=== PATIENT | male | born 1970 | race Caucasian/White ===

== ENCOUNTER → 2020-07-26 | Outpatient (CLI) | payer BC | LOC: OD 13:18 | PROVIDERS: ATTEND Nurse Practitioner Family | DX: M54.2 Cervicalgia (principal); H92.01 Otalgia, right ear | CPT/HCPCS: 36415; 85652; 86140 ==

== ENCOUNTER 2020-08-03 10:09 | Emergency (ER) | payer BC ==
[2020-08-03] MEDS ORDERED: NORMAL SALINE 1000 ML 1,000 ML IV ONE (10:36)
--- NOTE | 2020-08-03 10:36 | ER Document Report ---
ED Medical Screen (RME) - General Chief Complaint: Chest Pain Stated Complaint: CHEST PAIN/NECK PAIN Time Seen by Provider: 08/03/20 10:13 Primary Care Provider: DOUGIE ROGERS NP [Primary Care Provider] - Follow up as needed - [facility] Notes: 08/03/20 10:15 50 yr old male with history of hyperlipidemia, hypertension with an abnormal stress test that was done 2 weeks ago presents to ED by private care for right- sided chest pain that started around 830 this morning, sharp, burning, and 5 out of 5. Patient was given a nitro at 0945 with relief which brought his chest pain down to 4 out of 5. Patient states that he has had for the last 3 to 4 weeks right shoulder pain, he was seen by his primary care provider and was given steroids. Since that time has had intermittent right shoulder pain but days when it radiated to his right chest, he was clammy, felt a burning sharp pain. Patient reports his mother and father both had hypertension hyperlipidemia, no history of myocardial infarction's or stroke. Patient states that his abnormal stress test showed that he had a two-vessel disease, he is with Dr. Banks, air analysis engineering technician, they were trialing him on Lopressor and Lipitor for a couple of weeks and then looking into doing a catheterization or possible stenting. Reports he did have some nausea after taking the nitro. Denies any shortness of breath, abdominal pain, vomiting, numbness or tingling to face, hands, legs. Non-smoker I have greeted and performed a rapid initial assessment of this patient. A comprehensive ED assessment and evaluation of the patient, analysis of test results and completion of the medical decision making process will be conducted by additional ED providers. PHYSICAL EXAMINATION: GENERAL: Well-appearing, well-nourished and in no acute distress. HEAD: Atraumatic, normocephalic. EYES: Pupils equal round extraocular movements intact, conjunctiva are normal. NECK: Normal range of motion CV: s1, s2 regular LUNGS: No respiratory distress Musculoskeletal: Normal range of motion NEUROLOGICAL: Normal speech, normal gait. SKIN: Warm, Dry, normal turgor, no rashes or lesions noted. 08/03/20 10:36 Doctor's Discharge - Discharge Referrals: DOUGIE ROGERS NP [Primary Care Provider] - Follow up as needed
[2020-08-03 10:51] LABS: ABSOLUTE EOSINOPHILS # (AUTO) 0.1 10^3/uL (0.0-0.6); ABSOLUTE LYMPHOCYTES (AUTO) 2.1 10^3/uL (0.5-4.7); ABSOLUTE MONOCYTES (AUTO) 0.6 10^3/uL (0.1-1.4); ABSOLUTE NEUT (AUTO) 3.1 10^3/uL (1.7-8.2); BASOPHILS % (AUTO) 0.8 % (0-2); EOSINOPHILS % (AUTO) 1.8 % (0-6); HEMOGLOBIN 15.8 g/dL (13.5-17.0); LYMPHOCYTES % (AUTO) 35.4 % (13-45); MEAN CORPUSCULAR HEMOGLOBIN 31.7 pg (27.0-33.4); MEAN CORPUSCULAR HGB CONC 35.8 g/dL (32.0-36.0); MEAN CORPUSCULAR VOLUME 89 fl (80-97); MONOCYTES % (AUTO) 9.3 % (3-13); PLATELET COUNT 227 10^3/uL (150-450); RED BLOOD COUNT 4.97 10^6/uL (4.35-5.55); RED CELL DISTRIBUTION WIDTH 13.5 % (11.5-14.0); SEGMENTED NEUTROPHILS % (AUTO) 52.7 % (42-78); TOTAL CELLS COUNTED % (AUTO) 100 %; WHITE BLOOD COUNT 5.9 10^3/uL (4.0-10.5)
[2020-08-03] MEDS: NITROGLYCERIN 0.4 MG/TAB 25 TAB/BOTTLE SL PRN ×2 (10:52→11:15)
--- NOTE | 2020-08-03 11:00 | RADIOLOGY REPORT (SQ) ---
EXAM DESCRIPTION: CHEST 2 VIEWS IMAGES COMPLETED DATE/TIME: 08/03/2020 10:47 am REASON FOR STUDY: chest pain,abnormal ST,some relief w/nitro COMPARISON: None. EXAM PARAMETERS: NUMBER OF VIEWS: two views TECHNIQUE: Digital Frontal and Lateral radiographic views of the chest acquired. RADIATION DOSE: NA LIMITATIONS: none FINDINGS: LUNGS AND PLEURA: No opacities, masses or pneumothorax. No pleural effusion. MEDIASTINUM AND HILAR STRUCTURES: No masses or contour abnormalities. HEART AND VASCULAR STRUCTURES: Heart normal size. No evidence for failure. BONES: No acute findings. HARDWARE: None in the chest. OTHER: No other significant finding. IMPRESSION: NO ACUTE RADIOGRAPHIC FINDING IN THE CHEST. TECHNICAL DOCUMENTATION: JOB ID: [id number] 2010 [employer]- All Rights Reserved Reading location - IP/workstation name: [email or web address]
[2020-08-03 11:07] LABS: ALBUMIN 4.9 g/dL (3.5-5.0); ALKALINE PHOSPHATASE 47 U/L (38-126); ANION GAP 14 (5-19); ASPARTATE AMINO TRANSFERASE 32 U/L (17-59); BILIRUBIN,DIRECT 0.1 mg/dL (0.0-0.4); BILIRUBIN,TOTAL 0.7 mg/dL (0.2-1.3); BLOOD UREA NITROGEN 27 mg/dL (7-20); CALCIUM 10.5 mg/dL (8.4-10.2); CARBON DIOXIDE 27 mmol/L (22-30); CHLORIDE 98 mmol/L (98-107); CREATINE KINASE 134 U/L (55-170); GLUCOSE 96 mg/dL (75-110); POTASSIUM 4.2 mmol/L (3.6-5.0); TOTAL PROTEIN 8.1 g/dL (6.3-8.2)
[2020-08-03 11:19] LABS: CREATINE KINASE MB 1.53 ng/mL (<4.55)
[2020-08-03 11:20] LABS: TROPONIN I < 0.012 ng/mL
[2020-08-03] MEDS ORDERED: ONDANSETRON HCL INJ/PF 4 MG/2 ML SDV IV ONE (11:35)
[2020-08-03] MEDS ORDERED: FENTANYL CITRATE INJ/PF 100 MCG/2 ML AMPUL IV ONE ×2 (11:36→13:16)
[2020-08-03] MEDS ORDERED: NITROGLYCERIN 2% OINTMENT 1 GM PACKET TP ONE (11:37)
--- NOTE | 2020-08-03 11:45 | ER Document Report ---
ED General - General Chief Complaint: Chest Pain Stated Complaint: CHEST PAIN/NECK PAIN Time Seen by Provider: 08/03/20 10:13 Primary Care Provider: DOUGIE ROGERS NP [Primary Care Provider] - Follow up as needed - [facility] Notes: Chief complaint: Chest pain, back pain, neck pain History of present illness: 50-year-old male in for evaluation of chest pain, back pain and neck pain. Patient has had about a 6-week history of what he initially thought was musculoskeletal discomfort with pain in his mid back intermittently radiating into his posterior midline neck area and sometimes into both shoulders. Over the last 2 to 3 weeks he is also had some associated dull pain in the center of his chest that sometimes accompanies the neck and back pain and at other times seems to be completely independent. His primary care provider sent him to see a household manager Dr. Abel who performed a treadmill exercise test as an outpatient and advised the patient that he had some changes suggestive of ischemia. They have him set up for an elective cardiac catheterization next Sunday. The patient has been taking medications prescribed by his household manager including aspirin, Lipitor, Toprol and he also has some sublingual nitroglycerin for as needed use. He has had 2 episodes of brief chest pain lasting less than 5 minutes over the last several days relieved by nitroglycerin. 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 He described this is central chest pressure radiating into both shoulders and the back of his neck. He took 2 nitroglycerin tablets and the chest pain resolved and under 5 minutes. The pain in his shoulders and his neck persists but he again describes this is a more chronic discomfort that he has had for some time. He denies diaphoresis. He had mild nausea without vomiting. No dyspnea. Patient currently describes his neck and upper back pain is 6/10 intensity. He is not presently experiencing any chest pain. Patient has a history of hypertension. He is not diabetic. History of hyperlipidemia. Family history negative for CAD. Personal or family history of thromboembolic disease or aneurysm. Patient is a non-smoker. HEART Score: HISTORY 2 ECG 0 AGE 1 RISK FACTORS 1 TROPONIN 0 TOTAL: 4 If HEART score is = 3 AND both tronponin measurments are normal, the 30 day risk of a major adverse cardiac event (all-cause mortality, myocardia infarction or need for coronary revscularization) is < 1% (Sensitivity 100%, NPV 100%). - Related Data Allergies/Adverse Reactions: No Known Allergies Allergy (Unverified 08/03/20 10:44) Past Medical History - General Information source: Patient, Relative, [facility] Records - Social History Smoking Status: Never Smoker Frequency of alcohol use: Rare Drug Abuse: None Lives with: Spouse/Significant other Family History: denies: CAD Patient has homicidal ideation: No - Past Medical History Cardiac Medical History: Reports: Hx Hypercholesterolemia, Hx Hypertension Denies: Hx DVT, Hx Pulmonary Embolism Pulmonary Medical History: Reports: None Endocrine Medical History: Denies: Hx Diabetes Mellitus Type 1, Hx Diabetes Mellitus Type 2 Renal/ Medical History: Reports: None Malignancy Medical History: Reports None GI Medical History: Reports: None Psychiatric Medical History: Reports: None Past Surgical History: Reports: None Review of Systems - Review of Systems Notes: Constitutional: Negative for fever. HENT: Negative for sore throat. Eyes: Negative for visual changes. Cardiovascular: As per HPI. Respiratory: Negative for shortness of breath. Gastrointestinal: As per HPI. Genitourinary: Negative for dysuria. Musculoskeletal: As per HPI. Skin: Negative for rash. Neurological: Negative for headaches, focal weakness or numbness. 10 point ROS negative except as marked above and in HPI. Physical Exam - Vital signs Vitals: Temp Pulse Resp BP Pulse Ox 98.0 F 56 L 17 139/86 H 97 08/03/20 10:23 08/03/20 10:23 08/03/20 10:23 08/03/20 10:23 08/03/20 10:23 - Notes Notes: GENERAL: Well-developed well-nourished appearing mildly anxious . SKIN: Good turgor no rashes. HEAD: Normocephalic atraumatic. EYES: PERRLA. EOMI. Conjunctivae and sclerae clear. EARS: CANALS AND TMS CLEAR. NOSE: CLEAR. MOUTH: Moist mucosa. Good dentition. No stridor or edema. No drooling. NECK: Supple. No masses or thyromegaly. No adenopathy. Carotids 2+ without bruits. No JVD. BACK: Symmetrical without tenderness. CHEST: Respirations unlabored. Breath sounds clear and symmetrical. HEART: Regular rhythm. No murmur gallop or rub. ABDOMEN: Soft nontender without masses, organomegaly or rebound. Bowel sounds normally active. No bruits. GENITALIA: Deferred. EXTREMITIES: No edema. No calf tenderness. Cap refill less than 1.5 seconds. Dorsalis pedis and posterior tibial pulses 3+ and symmetrical. NEUROLOGICAL: GCS 15. Alert and oriented x3. Normal gait. Fluent speech. Cranial nerves II through XII intact. Sensorimotor and cerebellar normal. Normal tone. PSYCHIATRIC: Appropriate affect. Course - Re-evaluation Re-evalutation: 08/03/20 11:49 Initial EKG is normal. Initial troponin is normal. Comprehensive metabolic profile and CBC unremarkable. I am concerned about patient's pattern of pain and wanted be sure that he does not have dissection. I am going to order a CTA of chest and abdomen. He is free of any chest pain currently. His vital signs are stable. I will place some Nitropaste and also give him some fentanyl for ongoing pain. I will contact his household manager to discuss current findings and presentation. 08/03/20 13:16 Patient got relief of his back and neck pain with 1 dose of IV fentanyl. Patient reports that he is having some pain in this area again now is requesting additional dose of pain medicine. He denies any chest pain. He is in a sinus bradycardia about 48 consistent with beta-galindo that he is taking. Blood pressure is 130/80. His CTA chest and abdomen showed no evidence of aneurysm or dissection. We are repeating an EKG at this time. His first troponin and EKG were unremarkable. Second troponin is drawn and pending. I have called into his household manager at this time. 08/03/20 14:47 Pain-free at this time. Second troponin is normal. Vital signs are stable. Second EKG remarkable only for sinus bradycardia with no ST changes. Case was reviewed in detail by telephone with his household manager at this time. He recommends that we discharge home patient with continuation of current medications addition of transdermal nitroglycerin patch. He is to be instructed to return here immediately for new or worsening symptoms and will otherwise c ontact his household manager office to arrange outpatient follow-up in the office within next 24 hours. Findings, clinical impression and plan of treatment have been discussed with patient/family. Understanding of current findings and recommendations has been acknowledged by them and there is agreement regarding disposition and follow-up. - Vital Signs Vital signs: Temp Pulse Resp BP Pulse Ox 98.0 F 56 L 13 102/73 97 08/03/20 10:23 08/03/20 10:23 08/03/20 14:01 08/03/20 14:01 08/03/20 14:01 - Laboratory Result Diagrams: 08/03/20 10:30 08/03/20 10:30 Laboratory results interpreted by me: 08/03/20 10:30 BUN 27 H Calcium 10.5 H - EKG Interpretation by Me Additional EKG results interpreted by me: 08/03/20 11:48 Twelve-lead EKG reviewed by me contemporaneously: 1013 hrs. Indication for study: Chest pain Rhythm: Sinus bradycardia Rate: 51 Intervals: Normal QRS axis: -[address]/T wave changes: None Comparison with prior tracing: None Interpretation: Sinus bradycardia. 08/03/20 14:53 EKG #2 Twelve-lead EKG reviewed by me contemporaneously: 1330 hrs. Indication for study: Chest pain Rhythm: Sinus bradycardia Rate: 48 Intervals: Normal QRS axis: [address]/T wave changes: None Comparison with prior tracing: Unchanged compared with earlier tracing today Interpretation: Sinus bradycardia Discharge - Discharge Clinical Impression: Chest pain Qualifiers: Chest pain type: unspecified Qualified Code(s): R07.9 - Chest pain, unspecified Condition: Stable Disposition: HOME, SELF-CARE Additional Instructions: Continue all current medications. Add nitroglycerin patch as directed. Contact your household manager to arrange office follow-up within the next 24 hours. Return here as needed for new or worsening symptoms: Pain that is worsening or unimproved Uncontrolled vomiting High fever or shaking chills Overall worsening Prescriptions: Nitroglycerin [Nitro-Dur] 1 each TD DAILY #4 patch.td24 Forms: Return to Work Referrals: DOUGIE ROGERS NP [Primary Care Provider] - Follow up as needed ZAINAB ABEL MD [EMERITUS] - Follow up as needed
--- NOTE | 2020-08-03 12:58 | RADIOLOGY REPORT (SQ) ---
EXAM DESCRIPTION: CTA ABDOMEN; CTA CHEST IMAGES COMPLETED DATE/TIME: 08/03/2020 11:25 am REASON FOR STUDY: back pain r/o AO dissection COMPARISON: Chest radiograph same date TECHNIQUE: CT scan of the chest and abdomen performed using helical scanning technique with dynamic intravenous contrast injection. Images reviewed with lung, soft tissue and bone windows. Reconstruc peggy coronal and sagittal MPR images reviewed. Additional 3 dimensional post-processing performed to develop Maximal Intensity Projection images (NV P). All images stored on PACS. All CT scanners at this facility use dose modulation, iterative reconstruction, and/or weight based d osing when appropriate to reduce radiation dose to as low as reasonably achievable (ALARA). [facility]: Dose Right [facility]: CareDose [facility]: Dose Right [facility]: Teradose 4D [facility]: GroupSwim CONTRAST TYPE AND DOSE: contrast/concentration: Isovue 350.00 mmol/ml; Total Contrast Delivered: 99. 9 ml; Total Saline Delivered: 70.0 ml Contrast bolus optimized for the aorta. Pulmonary arteries are adequately opacified for evaluation. RENAL FUNCTION: GFR > 60. RADIATION DOSE: CT Rad equipment meets quality standard of care and radiation dose reduction techniq ues were employed. CTDIvol: 19.5 - 28.3 mGy. DLP: 2089 mGy-cm. . LIMITATIONS: None. FINDINGS: VASCULATURE: The ascending thoracic aorta and aortic arch have normal caliber and appeara nce. No aortic dissection or intimal flap. No periaortic fluid. Arch origin of the left vertebral artery is noted, a normal variant. The great vessels have normal caliber and appearance. The descen ding thoracic aorta and abdominal aorta also have normal caliber and appearance. No significant calc ified or noncalcified atherosclerotic plaque. No evidence of plaque ulceration or inflammatory jarvis e. The celiac axis is widely patent with no significant stenosis or inflammatory change. Convention al hepatic arterial supply. Superior mesenteric artery is widely patent. Bilateral renal arteries, widely patent. The infrarenal abdominal aorta has normal caliber and appearance. No significant sherrie nosis, plaque, or evidence of dissection. Bilateral common iliac, internal and external iliac arteri es are widely patent. No significant stenosis or plaque. There is no pulmonary embolism. LUNGS AND PLEURA: The trachea has normal caliber and appearance. No bronchial wall thickening or bro nchiectasis. Mild dependent atelectasis. No focal consolidation. No significant ground-glass atten uation or inflammatory change. No suspicious pulmonary nodules. No pleural effusion or pneumothorax . HEART: No pericardial effusion. No significant coronary artery calcifications. HILAR AND MEDIASTINAL STRUCTURES: No identified masses or abnormal nodes. HARDWARE: None in the chest. ABDOMEN: The liver has normal size and contour with mild diffuse hepatic steatosis. No focal hepatic mass. Hepatic and portal veins are patent. No biliary ductal dilation. No gallstones or perichole cystic fluid. Spleen has normal size. Pancreas has normal contour. No pancreatic ductal dilation. No pancreatic mass or peripancreatic inflammation. No adrenal mass. Kidneys have normal size and p osition. No renal or ureteral calculi. No solid or cystic renal mass. No hydronephrosis. No perin ephric fluid. Ureters have normal caliber and appearance. There is no bowel obstruction. No bowel wall thickening or inflammatory change. No ascites or pneumoperitoneum. No abdominal adenopathy. THYROID AND OTHER SOFT TISSUES: No masses. No adenopathy. BONES: No acute or significant finding. 3D MIPS: Confirm above findings. OTHER: No other significant finding. IMPRESSION: 1. No thoracic or abdominal aortic aneurysm, dissection, plaque ulceration, or inflammatory change. 2. No pulmonary embolism. 3. Mild hepatic steatosis. COMMENT: Quality ID # [id number]: Final reports with documentation of one or more dose reduction techniques (e.g., Automated exposure control, adjustment of the mA and/or kV according to patient size, use of iterative reconstruction technique) TECHNICAL DOCUMENTATION: JOB ID: [id number] 2010 [employer]- All Rights Reserved Reading location - IP/workstation name: [email or web address]
--- NOTE | 2020-08-03 13:04 | EKG REPORT ---
SEVERITY:- NORMAL ECG - SINUS BRADYCARDIA : Confirmed by: Maurice Banks MD 03-Aug-2020 13:04:25
[2020-08-03 15:08] VITALS: BP 119/79
--- NOTE | 2020-08-03 18:10 | EKG REPORT ---
SEVERITY:- OTHERWISE NORMAL ECG - SINUS BRADYCARDIA : Confirmed by: Maurice Banks MD 03-Aug-2020 18:10:03
--- NOTE | 2020-08-03 18:11 | EKG REPORT ---
SEVERITY:- OTHERWISE NORMAL ECG - SINUS BRADYCARDIA : Confirmed by: Maurice Banks MD 03-Aug-2020 18:10:33
== END 2020-08-03 15:10 | disposition home or self-care (01) ==
LOC: ER 10:09
DX: R07.9 Chest pain, unspecified (principal); M54.2 Cervicalgia; R11.0 Nausea; E78.5 Hyperlipidemia, unspecified; I10 Essential (primary) hypertension
CPT/HCPCS: 93005; 99285; 96361; 96374; 96375; 36415; 82553; 82550; 85025; 80053; 84484; 71046; 71275; 74175; 93010; J3010; J2405; J7030